=== PATIENT | male | born 1965 | race Caucasian/White ===

== ENCOUNTER → 2020-01-12 | Outpatient (CLI) | payer OTHER ==
--- NOTE | 2020-01-12 09:50 | CT ---
EXAMINATION TYPE: CT lower leg LT wo con DATE OF EXAM: 01/12/2020 COMPARISON: None number no plain film supplied for correlation HISTORY: Leg pinned by marquez, pain left knee down CT DLP: 1089.3 mGycm Automated exposure control for dose reduction was used. Helical imaging through the left knee, mason l and sagittal reconstructions FINDINGS: There is no fracture or dislocation. Alignment, bone mineralization are maintained. No periostitis to suggest fracture healing. No evident soft tissue mass. Achilles tendon thought to be intact. Minimal knee joint fluid present in the suprapatellar location. Some mild soft tissue swelling present along the anterior leg. IMPRESSION: SOFT TISSUE SWELLING. NO FRACTURE OR DISLOCATION.
== END | disposition home or self-care (01) ==
LOC: RADCTMAIN 06:53
PROVIDERS: ATTEND Family Medicine
DX: M79.89 Other specified soft tissue disorders (principal)

== ENCOUNTER 2020-03-03 15:40 | Emergency (ER) | payer BC, OTHER ==
[2020-03-03 16:01] VITALS: PULSE 75; TEMP 97.9
--- NOTE | 2020-03-03 17:11 | ED ---
Recheck HPI - General Chief Complaint: Recheck/Abnormal Lab/Rx Stated Complaint: elevated BP Time Seen by Provider: 03/03/20 16:58 Source: patient, family, RN notes reviewed, old records reviewed Mode of arrival: ambulatory Limitations: no limitations - History of Present Illness Initial Comments: This is a 54-year-old male history of hypertensionalso history of left lower extremity fasciotomy last summer after a crush injury who presents today for wo und care with complaints of elevated blood pressure. He took his medication as he usually doesn't 5:00 this morning at 11 AM a wound care was noted that his systolic blood pressure was in the 200s. Currently he is 160. He still remains elevated though he has no symptoms such as dizziness blurry vision fevers chills nausea vomiting sweats chest pain exertional dyspnea or other problems. The wou nd is healing he states he does have some persistent anterior john pain in the left side S of unknown etiology. - Related Data Home Medications Medication Instructions Recorded Confirmed Acetaminophen Tab [Tylenol Tab] 500 mg PO Q6H PRN 03/03/20 03/03/20 Furosemide [Lasix] 10 mg PO DAILY 03/03/20 03/03/20 Metoprolol Succinate (ER) [Toprol 100 mg PO BID 03/03/20 03/03/20 Xl] Sertraline [Zoloft] 50 mg PO DAILY 03/03/20 03/03/20 traMADol HCL 50 mg PO BID PRN 03/03/20 03/03/20 Allergies Allergy/AdvReac Type Severity Reaction Status Date / Time codeine Allergy Itching Verified 03/03/20 18:22 Review of Systems ROS Statement: Those systems with pertinent positive or pertinent negative responses have been documented in the HPI. ROS Other: All systems not noted in ROS Statement are negative. Past Medical History Past Medical History: Atrial Flutter, Hypertension Additional Past Medical History / Comment(s): 06/24/14 Pt present to [facility] ER with c/o midsternal ches discomfort that radiated to his back and dizziness and headache that started yesterday. Pt also c/o R shoulder discomfort for the past 2 weeks - the R shoulder pain is affected by positioning. Other HX: regular ir regular heart beat. History of Any Multi-Drug Resistant Organisms: None Reported Past Surgical History: No Surgical Hx Reported Additional Past Surgical History / Comment(s): vasectomy x 2, facsiotomy Past Anesthesia/Blood Transfusion Reactions: No Reported Reaction Past Psychological History: No Psychological Hx Reported Smoking Status: Current every day smoker Past Alcohol Use History: None Reported Past Drug Use History: None Reported - Past Family History Father Family Medical History: Unable to Obtain Additional Family Medical History / Comment(s): Father committed suicide. Mother Family Medical History: No Reported History Additional Family Medical History / Comment(s): Mother is 69 yrs old. She is healthy but is currently being tx for a sore on her leg with a wound vac. General Exam - General Exam Comments Initial Comments: this is a well-developed well-nourished awake alert oriented 3 male Limitations: no limitations General appearance: alert, in no apparent distress Head exam: Present: atraumatic, normocephalic, normal inspection Eye exam: Present: normal appearance, PERRL, EOMI. Absent: scleral icterus, conjunctival injection, periorbital swelling ENT exam: Present: mucous membranes dry Neck exam: Present: normal inspection. Absent: tenderness, meningismus, lymphadenopathy Respiratory exam: Present: normal lung sounds bilaterally. Absent: respiratory distress, wheezes, rales, rhonchi, stridor Cardiovascular Exam: Present: regular rate, normal rhythm, normal heart sounds. Absent: systolic murmur, diastolic murmur, rubs, gallop, clicks GI/Abdominal exam: Present: soft, normal bowel sounds. Absent: distended, tenderness, guarding, rebound, rigid Extremities exam: Present: normal inspection, full ROM, normal capillary refill. Absent: tenderness, pedal edema, joint swelling, calf tenderness Back exam: Present: normal inspection Neurological exam: Present: alert, oriented X3, CN II-XII intact Psychiatric exam: Present: normal affect, normal mood Skin exam: Present: warm, dry, intact, normal color. Absent: rash Course Vital Signs 03/03/20 03/03/20 03/03/20 15:57 16:36 17:15 Temperature 97.9 F Pulse Rate 75 70 Respiratory 18 18 Rate Blood Pressure 184/112 184/113 170/113 O2 Sat by Pulse 98 99 Oximetry 03/03/20 03/03/20 03/03/20 17:45 17:54 18:42 Temperature Pulse Rate 75 Respiratory 19 Rate Blood Pressure 155/117 165/103 159/98 O2 Sat by Pulse 98 Oximetry Medical Decision Making - Medical Decision Making patient is improving this at rest he will get IV fluids he will be following up with his doctor. He did clinically appear to be dehydrated. He does have a blood pressure monitor at home he will do this once per day he does have a follow-up appointment with his doctor in 2 days - Lab Data Result diagrams: 03/03/20 17:12 03/03/20 17:12 Lab Results 03/03/20 03/03/20 03/03/20 Range/Units 17:12 17:12 17:12 WBC 11.4 H (3.8-10.6) k/uL RBC 5.19 (4.30-5.90) m/uL Hgb 15.4 (13.0-17.5) gm/dL Hct 47.5 (39.0-53.0) % MCV 91.6 (80.0-100.0) fL MCH 29.7 (25.0-35.0) pg MCHC 32.4 (31.0-37.0) g/dL RDW 13.4 (11.5-15.5) % Plt Count 219 (150-450) k/uL MPV 7.5 Neutrophils % 62 % Lymphocytes % 24 % Monocytes % 7 % Eosinophils % 2 % Basophils % 1 % Neutrophils # 7.1 (1.3-7.7) k/uL Lymphocytes # 2.8 (1.0-4.8) k/uL Monocytes # 0.8 (0-1.0) k/uL Eosinophils # 0.3 (0-0.7) k/uL Basophils # 0.1 (0-0.2) k/uL Sodium 137 (137-145) mmol/L Potassium 4.2 (3.5-5.1) mmol/L Chloride 106 (98-107) mmol/L Carbon Dioxide 26 (22-30) mmol/L Anion Gap 5 mmol/L BUN 19 (9-20) mg/dL Creatinine 1.03 (0.66-1.25) mg/dL Est GFR (CKD-EPI)AfAm >90 (>60 ml/min/1.73 sqM) Est GFR (CKD-EPI)NonAf 84 (>60 ml/min/1.73 sqM) Glucose 99 (74-99) mg/dL Calcium 8.9 (8.4-10.2) mg/dL Magnesium 2.1 (1.6-2.3) mg/dL Total Bilirubin 0.5 (0.2-1.3) mg/dL AST 39 (17-59) U/L ALT 45 (4-49) U/L Alkaline Phosphatase 76 (38-126) U/L Creatine Kinase 65 (55-170) U/L Troponin I <0.012 (0.000-0.034) ng/mL Total Protein 7.6 (6.3-8.2) g/dL Albumin 4.2 (3.5-5.0) g/dL Lipase 289 (23-300) U/L - EKG Data -: EKG Interpreted by Me EKG shows normal: sinus rhythm EKG Comments: sinus rhythm a 63. Interval 190 QRS duration 104 QT since QTC 492/503 right word axis and complete right bundle-branch block, QT nonspecific T-wave configuration artifact present - Radiology Data Radiology results: report reviewed (I did review the imaging and report no acute findings.), image reviewed Disposition Clinical Impression: Hypertension, Dehydration Disposition: HOME SELF-CARE Condition: Good Instructions (If sedation given, give patient instructions): Hypertension (ED), Dehydration (ED) Is patient prescribed a controlled substance at d/c from ED?: No Referrals: Holger Myers MD [Primary Care Provider] - 1-2 days
[2020-03-03 17:26] LABS: Basophils # (A) 0.1 k/uL (0-0.2); Basophils % (A) 1 %; Eosinophils # (A) 0.3 k/uL (0-0.7); Eosinophils % (A) 2 %; HCT 47.5 % (39.0-53.0); HGB 15.4 gm/dL (13.0-17.5); Lymphocytes # (A) 2.8 k/uL (1.0-4.8); Lymphocytes % (A) 24 %; MCH 29.7 pg (25.0-35.0); MCHC 32.4 g/dL (31.0-37.0); MCV 91.6 fL (80.0-100.0); Mean Platelet Volume 7.5; Monocytes # (A) 0.8 k/uL (0-1.0); Monocytes % (A) 7 %; Neutrophils # (A) 7.1 k/uL (1.3-7.7); Neutrophils % (A) 62 %; Platelet Count 219 k/uL (150-450); RBC 5.19 m/uL (4.30-5.90); RDW 13.4 % (11.5-15.5); WBC 11.4 k/uL (3.8-10.6)
[2020-03-03 17:36] LABS: ALT 45 U/L (4-49); AST 39 U/L (17-59); African American GFR (CKD) >90 (>60 ml/min/1.73 sqM); Albumin 4.2 g/dL (3.5-5.0); Alkaline Phosphatase 76 U/L (38-126); Anion Gap 5 mmol/L; Blood Urea Nitrogen 19 mg/dL (9-20); Calcium 8.9 mg/dL (8.4-10.2); Carbon Dioxide 26 mmol/L (22-30); Chloride 106 mmol/L (98-107); Creatine Kinase 65 U/L (55-170); Glucose 99 mg/dL (74-99); Lipase 289 U/L (23-300); Magnesium 2.1 mg/dL (1.6-2.3); Non-African American GFR(CKD) 84 (>60 ml/min/1.73 sqM); Potassium 4.2 mmol/L (3.5-5.1); Sodium 137 mmol/L (137-145); Total Bilirubin 0.5 mg/dL (0.2-1.3); Total Protein 7.6 g/dL (6.3-8.2)
[2020-03-03 17:56] VITALS: RESP 19
[2020-03-03] MEDS ORDERED: SODIUM CHLORIDE 0.9% 500 ML 500 ML IV STA (18:32)
--- NOTE | 2020-03-03 18:37 | XR ---
EXAMINATION TYPE: XR chest 2V DATE OF EXAM: 03/03/2020 COMPARISON: 06/24/2014 HISTORY: Chest pain TECHNIQUE: FINDINGS: Heart and mediastinum are normal. Lungs are clear. Diaphragm is normal. Bony thorax appears normal. There are chest leads. IMPRESSION: Normal chest. No change.
[2020-03-03 18:43] VITALS: BP 159/98
== END 2020-03-03 19:13 | disposition home or self-care (01) ==
LOC: EC 15:40
DX: I10 Essential (primary) hypertension (principal); E86.0 Dehydration; F17.200 Nicotine dependence, unspecified, uncomplicated; Z79.899 Other long term (current) drug therapy; Z88.5 Allergy status to narcotic agent
CPT/HCPCS: 36415; 71046; 80053; 82550; 83690; 83735; 84484; 85025; 93005; 99284

== ENCOUNTER → 2020-04-15 | Outpatient (CLI) | payer OTHER ==
--- NOTE | 2020-04-19 07:23 | US ---
EXAMINATION TYPE: US venous doppler duplex LE LT DATE OF EXAM: 04/15/2020 8:44 AM COMPARISON: NONE CLINICAL HISTORY: R22.42 Lower left swelling. SIDE PERFORMED: Left TECHNIQUE: The lower extremity deep venous system is examined utilizing real time linear array sonog laith with graded compression, doppler sonography and color-flow sonography. VESSELS IMAGED: Common Femoral Vein Deep Femoral Vein Greater Saphenous Vein * Femoral Vein Popliteal Vein Small Saphenous Vein * Proximal Calf Veins (* superficial vessels) Left Leg: Negative for DVT Grayscale, color doppler, spectral doppler imaging performed of the deep veins of the left lower extr emity. There is normal flow, compressibility, vascular waveforms. IMPRESSION: No ultrasound evidence for acute DVT in the left lower extremity.
== END | disposition home or self-care (01) ==
LOC: RADUSWWP 06:52
PROVIDERS: ATTEND Family Medicine
DX: R22.42 Localized swelling, mass and lump, left lower limb (principal)

== ENCOUNTER → 2020-04-30 | Outpatient (CLI) | payer OTHER ==
--- NOTE | 2020-05-01 03:14 | MR ---
EXAMINATION TYPE: MR tib fib LT wo con DATE OF EXAM: 04/30/2020 COMPARISON: None HISTORY: Pain and swelling left mid leg down to ankle for 6 months. Left leg crushing injury. Multiplanar multiecho imaging of the left tibia and fibula was performed without contrast. The tibia and fibula appear intact. I see no bony destructive process. There is mild subcutaneous humphrey ma of the posterior left mid calf. There is no discrete mass involving the muscles of the lower leg. There is no pathologic fluid collection in the muscle. IMPRESSION: Minimal posterior subcutaneous edema on the left side compared to the right. No discrete mass.
== END | disposition home or self-care (01) ==
LOC: RADMRIMAIN 20:39
PROVIDERS: ATTEND Family Medicine
DX: R60.0 Localized edema (principal)

== ENCOUNTER → 2020-08-18 | Outpatient (CLI) | payer OTHER ==
--- NOTE | 2020-08-19 05:35 | MR ---
EXAMINATION TYPE: MR tib fib LT wo/w con DATE OF EXAM: 08/18/2020 COMPARISON: HISTORY: Hx of left leg injury, had 2 fasciectomy procedures, mid leg lateral and medial aspect. CONTRAST: Standard multiplanar, multisequence MRI departmental protocol utilizing 11 mL intravenous Gadavist ga dolinium contrast. Images were obtained from the distal femur to the distal tibia without and with IV contrast. The visualized tibia and fibula appear intact. I see no bony destructive process. Knee joint appears anatomic. Left knee joint spaces are fairly normal. There is no evidence of a soft tissue mass in the lower leg. Muscle bundles have normal signal patter n. There is no edema. There is no pathologic fluid collection. There is no evidence of cutaneous mass . Muscle bundles of the calf are fairly symmetric. I see no atrophy. There is loss of subcutaneous fa t and skin thickness seen at the medial lower aspect of the left tibia. This is consistent with some postsurgical changes. This measures up to 2.5 cm in width. There is no pathologic enhancement. Impression No bony abnormality. No muscle abnormality. There is loss of subcutaneous fat and skin thickness on t he medial lower leg consistent with surgery.
== END | disposition home or self-care (01) ==
LOC: RADMRIMAIN 20:45
PROVIDERS: ATTEND Family Medicine
DX: S80.922A Unspecified superficial injury of left lower leg, initial encounter (principal)
CPT/HCPCS: 73720; A9585

== ENCOUNTER → 2020-10-21 | Outpatient (CLI) | payer OTHER ==
--- NOTE | 2020-10-21 11:50 | CT ---
EXAMINATION TYPE: CT angio abd aorta w/Runoff DATE OF EXAM: 10/21/2020 COMPARISON: Correlation CT 01/12/2020 HISTORY: 54-year-old male I73.9, Crushing injury to lower left leg, peripheral artery disease TECHNIQUE: Contiguous axial scanning of the abdomen and pelvis with bilateral lower extreme runoff pe rformed without and with IV Contrast, patient injected with 125 mL of Isovue 370. Coronal/sagittal re constructions performed. 3-D reconstructions generated on a dedicated independent workstation. CT DLP: 1825.3 mGycm Automated exposure control for dose reduction was used. FINDINGS: Heart normal size without pericardial effusion. Lung bases clear without pleural effusion. Tiny hiatal hernia. Liver mildly enlarged at 19.5 cm. No focal lesion seen on arterial phase imaging. Gallbladder, right adrenal gland, and pancreas appear within normal limits. Tiny punctate calcificati on medial spleen suggesting a small calcified granuloma. Mild low density thickening left adrenal gland without discrete nodularity. There is a horseshoe kidney. There appears to be an extra renal pelvis on the left. No calyceal dilat ation to suggest hydronephrosis. No dilated small bowel, free fluid, or free air. No mesenteric or retroperitoneal lymphadenopathy. Some mottled debris within the terminal ileum, likely fiber food bolus. Mild to moderate oral stool b urden. No pericolonic inflammatory change. Mild circumferential bladder wall thickening. Prostatic calcifications. No abnormal fluid collection in the pelvis or pelvic lymphadenopathy. VASCULATURE: Celiac axis, SMA, bilateral gandhi renal arteries, and KELVIN are patent. No significant atherosclero tic changes seen. Right: The iliac, common femoral artery, deep femoral artery, SFA, popliteal artery, and trifurcation is pat ent. The anterior tibial artery and peroneal artery becomes diminutive just above the ankle. The peroneal artery is no longer seen. The anterior tibial artery is faintly seen into the hindfoot. There is sati sfactory runoff via the posterior tibial artery. Left: The iliac, BUS GIRL, PFA, SFA, popliteal artery, and trifurcation. The peroneal artery becomes nonvisualized just above the ankle. The anterior tibial artery becomes diminutive at the distal third leg level with faint runoff seen in to the hindfoot. Satisfactory runoff via the posterior tibial artery. On the 3-D reconstruction, there is a short segment cutoff of the proximal anterior tibial artery whi ch is artifactual as it courses along the fibular neck. BONES: Scattered mild degenerative disc disease lumbar spine. Some subchondral cystic change at the right ti biotalar joint at the ankle. IMPRESSION: 1. THERE IS BILATERAL LOWER EXTREMITY RUNOFF VIA THE POSTERIOR TIBIAL ARTERIES. FAINT ANTERIOR TIBIAL ARTERY FLOW IS SEEN INTO THE BILATERAL HINDFOOT REGIONS ON BOTH SIDES. NO SIGNIFICANT ATHEROSCLEROTI C CHANGE IS IDENTIFIED. 2. NOTE THAT A SHORT SEGMENT DEFECT OF THE PROXIMAL LEFT ANTERIOR TIBIAL ARTERY IS ARTIFACTUAL ON THE 3-D RECONSTRUCTIONS DUE TO CLOSE PROXIMITY TO THE FIBULAR NECK AND RESULTANT PARTIAL VOLUME AVERAGIN G ARTIFACT. THERE IS NO STENOSIS OR OCCLUSION ON THE SOURCE IMAGES. 3. MILD HEPATOMEGALY (19.5 CM), TINY HIATAL HERNIA, INCIDENTAL HORSESHOE KIDNEY
== END | disposition home or self-care (01) ==
LOC: RADCTMAIN 07:43
PROVIDERS: ATTEND Family Medicine
DX: R16.0 Hepatomegaly, not elsewhere classified (principal); Q63.1 Lobulated, fused and horseshoe kidney
CPT/HCPCS: 75635; Q9967

== ENCOUNTER 2021-01-15 19:11 | Observation (INO) | payer OTHER ==
[2021-01-15] MEDS ORDERED: KETOROLAC 15 MG/ML 1 ML VIAL IVP STA (19:22)
[2021-01-15 19:38] LABS: Basophils # (A) 0.1 k/uL (0-0.2); Basophils % (A) 1 %; Eosinophils # (A) 0.1 k/uL (0-0.7); Eosinophils % (A) 1 %; HCT 49.7 % (39.0-53.0); HGB 16.1 gm/dL (13.0-17.5); Lymphocytes # (A) 2.9 k/uL (1.0-4.8); Lymphocytes % (A) 27 %; MCH 30.7 pg (25.0-35.0); MCHC 32.3 g/dL (31.0-37.0); MCV 94.9 fL (80.0-100.0); Mean Platelet Volume 7.6; Monocytes # (A) 0.7 k/uL (0-1.0); Monocytes % (A) 6 %; Neutrophils % (A) 64 %; Platelet Count 234 k/uL (150-450); RBC 5.24 m/uL (4.30-5.90); RDW 12.7 % (11.5-15.5); WBC 11.1 k/uL (3.8-10.6)
--- NOTE | 2021-01-15 19:38 | ED ---
Chest Pain HPI - General Chief Complaint: Chest Pain Stated Complaint: chest pain Time Seen by Provider: 01/15/21 19:21 Source: patient, EMS, RN notes reviewed Mode of arrival: EMS Limitations: no limitations - History of Present Illness Initial Comments: 35-year-old male who presents with complaints of right sided chest pain this started about 45 minutes ago. He was at home after they had home. He states he gets better with pressing on his chest wall no fevers chills nausea vomiting sweats he did call EMS and nitroglycerin as well as aspirin changes states that sharp in nature 01/30 severity he has a fevers chills nausea vomiting sweats cough phlegm production or other symptoms no trauma. MD Complaint: chest pain - Related Data Home Medications Medication Instructions Recorded Confirmed Acetaminophen Tab [Tylenol Tab] 500 mg PO Q6H PRN 03/03/20 03/03/20 Furosemide [Lasix] 10 mg PO DAILY 03/03/20 03/03/20 Metoprolol Succinate (ER) [Toprol 100 mg PO BID 03/03/20 03/03/20 Xl] Sertraline [Zoloft] 50 mg PO DAILY 03/03/20 03/03/20 traMADol HCL 50 mg PO BID PRN 03/03/20 03/03/20 Allergies Allergy/AdvReac Type Severity Reaction Status Date / Time codeine Allergy Itching Verified 03/03/20 18:22 Review of Systems ROS Statement: Those systems with pertinent positive or pertinent negative responses have been documented in the HPI. ROS Other: All systems not noted in ROS Statement are negative. EKG Findings - EKG Results: EKG: interpreted by ERMD, sinus rhythm (Sinus tachycardia rate of 108 TX in terval 138 QRS duration 90 QT since QTC 390/522 right word axis nonspecific ST-T wave configuration prolonged QT noted this is compared with previous EKGs dated both and 06/24/14 and similar configuration.) Past Medical History Past Medical History: Atrial Flutter, Hypertension Additional Past Medical History / Comment(s): 06/24/14 Pt present to [facility] ER with c/o midsternal ches discomfort that radiated to his back and dizziness and headache that started yesterday. Pt also c/o R shoulder discomfort for the past 2 weeks - the R shoulder pain is affected by positioning. Other HX: regular irregular heart beat. History of Any Multi-Drug Resistant Organisms: None Reported Past Surgical History: No Surgical Hx Reported Additional Past Surgical History / Comment(s): vasectomy x 2, facsiotomy Past Anesthesia/Blood Transfusion Reactions: No Reported Reaction Past Psychological History: No Psychological Hx Reported Smoking Status: Current every day smoker Past Alcohol Use History: None Reported Past Drug Use History: None Reported - Past Family History Father Family Medical History: Unable to Obtain Additional Family Medical History / Comment(s): Father committed suicide. Mother Family Medical History: No Reported History Additional Family Medical History / Comment(s): Mother is 69 yrs old. She is healthy but is currently being tx for a sore on her leg with a wound vac. General Exam - General Exam Comments Initial Comments: This is a well-developed well-nourished awake alert oriented times 3 male Limitations: no limitations General appearance: alert, anxious Head exam: Present: atraumatic, normocephalic, normal inspection Eye exam: Present: normal appearance, PERRL, EOMI. Absent: scleral icterus, conjunctival injection, periorbital swelling ENT exam: Present: normal exam, mucous membranes moist Neck exam: Present: normal inspection, full ROM, other (No stridor JVD or bruits). Absent: tenderness, meningismus, lymphadenopathy Respiratory exam: Present: normal lung sounds bilaterally, chest wall tenderness (No overt tenderness palpation is complaining of some pain relief after palpation of the right side of the chest). Absent: respiratory distress, wheezes, rales, rhonchi, stridor Cardiovascular Exam: Present: regular rate, normal rhythm, normal heart sounds. Absent: systolic murmur, diastolic murmur, rubs, gallop, clicks GI/Abdominal exam: Present: soft, normal bowel sounds. Absent: distended, tenderness, guarding, rebound, rigid Extremities exam: Present: normal inspection, full ROM, normal capillary refill. Absent: tenderness, pedal edema, joint swelling, calf tenderness Back exam: Present: normal inspection Neurological exam: Present: alert, oriented X3, CN II-XII intact Psychiatric exam: Present: normal affect, normal mood Skin exam: Present: warm, dry, intact, normal color. Absent: rash Course Vital Signs 01/15/21 01/15/21 19:13 20:18 Temperature 98.3 F Pulse Rate 105 H 87 Respiratory 18 16 Rate Blood Pressure 139/96 130/92 O2 Sat by Pulse 97 98 Oximetry - Reevaluation(s) Reevaluation #1: 01/15/21 21:11 Reevaluation patient reveals he is improved after medications were rendered. Reevaluation #2: 01/15/21 21:14 Repeat EKG showed a sinus rhythm 81. Avoid 54 QRS 88 QT since QTC 400/464 right word axis nonspecific ST T-wave configuration Chest Pain MDM - MDM Imaging reviewed no acute findings. Patient's workup thus far is negative for acute findings EKG does show evidence of previous configuration. Patient be admitted for evaluation and cardiology consultation. Critical Care Time Critical Care Time: Yes Total Critical Care Time: 31 Critical Care Time: Critical care time includes initial presentation with history physical labs x- rays multiple reevaluation the patient review of old charting was available discussed with the patient family regarding the findings discussed with the main service admission orders and documentation of the above Disposition Clinical Impression: Atypical chest pain, Unstable angina pectoris Disposition: ADMITTED IP TO THIS HOSP Condition: Fair Referrals: Holger Myers MD [Primary Care Provider] - 1-2 days
[2021-01-15 19:57] LABS: ALT 34 U/L (4-49); AST 28 U/L (17-59); African American GFR (CKD) >90 (>60 ml/min/1.73 sqM); Albumin 4.5 g/dL (3.5-5.0); Alkaline Phosphatase 77 U/L (38-126); Blood Urea Nitrogen 18 mg/dL (9-20); Calcium 9.5 mg/dL (8.4-10.2); Carbon Dioxide 24 mmol/L (22-30); Creatine Kinase 93 U/L (55-170); Glucose 113 mg/dL (74-99); Lipase 181 U/L (23-300); Non-African American GFR(CKD) 87 (>60 ml/min/1.73 sqM); Total Protein 7.7 g/dL (6.3-8.2)
[2021-01-15 20:04] LABS: Anion Gap 9 mmol/L; Chloride 102 mmol/L (98-107); Potassium 4.4 mmol/L (3.5-5.1); Sodium 135 mmol/L (137-145)
[2021-01-15 20:06] LABS: INR 0.9 (<1.2); Partial Thromboplastin Time 24.7 sec (22.0-30.0); Prothrombin Time 9.8 sec (9.0-12.0)
[2021-01-15] MEDS ORDERED: HYDROmorphone 1 MG/ML 1 ML SYRINGE IVP STA (20:13)
--- NOTE | 2021-01-15 20:19 | XR ---
EXAMINATION TYPE: XR chest 2V DATE OF EXAM: 01/15/2021 COMPARISON: 03/03/2020 HISTORY: Chest pain TECHNIQUE: FINDINGS: Heart and mediastinum are normal. Lungs are clear. Diaphragm is normal. Bony thorax is inta ct. IMPRESSION: Normal chest. No change.
[2021-01-15] MEDS ORDERED: HEPARIN SODIUM 1,000 UN/ML (10ML VL) IV ONE (21:15)
[2021-01-15] MEDS ORDERED: traMADol 50 MG TAB PO PRN (21:18)
[2021-01-15] MEDS ORDERED: ACETAMINOPHEN TAB 500 MG TAB PO PRN (21:18)
[2021-01-15] MEDS ORDERED: NITROGLYCERIN OINT 1 INCH/GM PACKET TOPICAL STA (21:18)
[2021-01-15] MEDS: HEPARIN SOD,PORK IN 0.45% NACL 25,000 UNIT in 0.45% NACL 1 250ML.BAG IV SCH (21:45)
[2021-01-15] MEDS: SODIUM CHLORIDE 0.9% 1,000 ML IV SCH (23:08)
[2021-01-16] MEDS: MELATONIN 3 MG TABLET PO SCH ×2 (00:28→22:12)
[2021-01-16] MEDS: NITROGLYCERIN OINT 1 INCH/GM PACKET TOPICAL SCH ×4 (00:28→17:20)
[2021-01-16] MEDS ORDERED: HEPARIN SODIUM 1,000 UN/ML (10ML VL) IV PRN (04:42)
[2021-01-16 05:19] LABS: Prothrombin Time 10.4 sec (9.0-12.0)
[2021-01-16] MEDS ORDERED: ASPIRIN 325 MG TAB PO SCH (09:00)
[2021-01-16] MEDS ORDERED: METOPROLOL SUCCINATE (ER) 100 MG TAB.ER.24H PO SCH (09:00)
[2021-01-16] MEDS ORDERED: SERTRALINE 50 MG TAB PO SCH (09:00)
[2021-01-16 09:14] LABS: Chol/HDL Ratio 4.06; LDL Cholesterol,Calculated 68.2 mg/dL (0.0-131.0); VLDL Calculation 35.8 mg/dL (5.00-40.00)
--- NOTE | 2021-01-16 09:32 | P.CRDCN ---
History of Present Illness Consult date: 01/16/21 History of present illness: This is a 55-year-old gentleman with history of hypertension is under stress because of family problems, came to the emergency room with complaints of right- sided chest pain which is under the axilla radiating to the front. There is mild tenderness. However, the pain is not to respirophasic doesn't change with movement of the chest. Patient was given nitroglycerin without much relief. He has no nausea, vomiting, sweating or shortness of breath. Patient was given Dilaudid, which lasted him and that helped relieve the pain. When the Dilaudid wore off, patient had recurrence of pain. Right now the pain is mild. His EKG showed sinus rhythm with mild T-wave changes in the anterior lateral leads. Patient had similar changes seen in 1999 with more T-wave inversions in leads. Patient is advised to stay and have a stress test. He prefers to go home and have stress test as an outpatient. He could be scheduled for echo and stress echocardiogram as an outpatient. Follow-up after the testing. It appears that patient have also has history of atrial flutter Review of Systems As per the chart Past Medical History Past Medical History: Atrial Flutter, Hypertension Additional Past Medical History / Comment(s): 06/24/14 Pt present to [facility] ER with c/o midsternal ches discomfort that radiated to his back and dizziness and headache that started yesterday. Pt also c/o R shoulder discomfort for the past 2 weeks - the R shoulder pain is affected by positioning. Other HX: regular irregular heart beat. History of Any Multi-Drug Resistant Organisms: None Reported Past Surgical History: No Surgical Hx Reported Additional Past Surgical History / Comment(s): vasectomy x 2, facsiotomy Past Anesthesia/Blood Transfusion Reactions: No Reported Reaction Past Psychological History: No Psychological Hx Reported Additional Psychological History / Comment(s): Pt lives at home with significant other and there are several children and grand children in and out of the home. Pt is independent. Smoking Status: Current every day smoker Past Alcohol Use History: None Reported Additional Past Alcohol Use History / Comment(s): Pt states he started smoking at 19 yrs of age and stopped once for 3 yrs then went back to smoking. He currently smokes about a pack a day. Past Drug Use History: None Reported - Past Family History Father Family Medical History: Unable to Obtain Additional Family Medical History / Comment(s): Father committed suicide. Mother Family Medical History: No Reported History Additional Family Medical History / Comment(s): Mother is 69 yrs old. She is healthy but is currently being tx for a sore on her leg with a wound vac. Medications and Allergies Home Medications Medication Instructions Recorded Confirmed Type Betamethasone Dipropionate 1 applic TOPICAL BID PRN 01/15/21 01/15/21 History [Diprolene AF 0.05% Cream] amLODIPine [Norvasc] 10 mg PO DAILY 01/15/21 01/15/21 History Allergies Allergy/AdvReac Type Severity Reaction Status Date / Time codeine Allergy Itching Verified 01/15/21 21:56 Physical Exam Vitals: Vital Signs Temp Pulse Pulse Resp BP BP Pulse Ox 01/16/21 07:00 97.9 F 76 18 137/71 96 01/16/21 02:05 97 17 01/16/21 00:30 97.0 F L 97 17 132/74 96 01/15/21 22:41 98.1 F 97 16 114/73 95 01/15/21 21:50 77 17 160/98 01/15/21 20:18 87 16 130/92 98 01/15/21 19:13 98.3 F 105 H 18 139/96 97 Intake and Output 01/15/21 01/16/21 01/16/21 22:59 06:59 14:59 Intake Total 70.5 Balance 70.5 Intake: Intake, IV Titration 70.5 Amount Heparin Sod,Pork in 0.45% 70.5 NaCl 25,000 unit In 0.45 % NaCl 1 250ml.bag @ 9. 381 UNITS/KG/HR 10 mls/hr IV .Q24H [facility] Rx#: [id number] Other: Voiding Method Toilet # Voids 2 0 Weight 106.594 kg GENERAL EXAM: Patient is alert and oriented and doesn't appear to be in any acute distress HEENT: Normocephalic. Normal reaction of pupils, equal size, normal range of extraocular motion. No erythema or exudates in the throat. NECK: No masses, no nuchal rigidity. CHEST: No chest wall deformity. No tenderness LUNGS: Equal air entry with no crackles or wheeze. HEART: S1 and S2 normal with no audible mumurs or gallops. Regular rhythm, femorals equal on both sides.. ABDOMEN: No hepatosplenomegaly, normal bowel sounds, no guarding or rigidity. SKIN: No rashes CENTRAL NERVOUS SYSTEM: No focal deficits. EXTREMITIES: No cyanosis, clubbing or edema. Results 01/15/21 19:24 01/15/21 19:24 Cardiac Enzymes 01/15/21 01/15/21 01/15/21 Range/Units 19:24 19:24 22:38 AST 28 (17-59) U/L Troponin I <0.012 <0.012 (0.000-0.034) ng/mL 01/16/21 Range/Units 01:00 AST (17-59) U/L Troponin I <0.012 (0.000-0.034) ng/mL Coagulation 01/15/21 01/16/21 01/16/21 Range/Units 19:24 04:02 04:02 PT 9.8 10.4 (9.0-12.0) sec APTT 24.7 27.5 (22.0-30.0) sec Lipids 01/16/21 Range/Units 04:02 Triglycerides 179.0 H (0.0-149.0) mg/dL Cholesterol 138 (0-200) mg/dL HDL Cholesterol 34.0 L (40.0-60.0) mg/dL Cholesterol/HDL Ratio 4.06 CBC 01/15/21 Range/Units 19:24 WBC 11.1 H (3.8-10.6) k/uL RBC 5.24 (4.30-5.90) m/uL Hgb 16.1 (13.0-17.5) gm/dL Hct 49.7 (39.0-53.0) % Plt Count 234 (150-450) k/uL Comprehensive Metabolic Panel 01/15/21 Range/Units 19:24 Sodium 135 L (137-145) mmol/L Potassium 4.4 (3.5-5.1) mmol/L Chloride 102 (98-107) mmol/L Carbon Dioxide 24 (22-30) mmol/L BUN 18 (9-20) mg/dL Creatinine 0.99 (0.66-1.25) mg/dL Glucose 113 H (74-99) mg/dL Calcium 9.5 (8.4-10.2) mg/dL AST 28 (17-59) U/L ALT 34 (4-49) U/L Alkaline Phosphatase 77 (38-126) U/L Total Protein 7.7 (6.3-8.2) g/dL Albumin 4.5 (3.5-5.0) g/dL Current Medications Generic Name Dose Route Start Last Admin Trade Name Freq PRN Reason Stop Dose Admin Acetaminophen 500 mg 01/15/21 21:18 Acetaminophen Tab 500 Mg Tab PO Q6H PRN Pain Aspirin 325 mg 01/16/21 09:00 Aspirin 325 Mg Tab PO DAILY [facility] Furosemide 10 mg 01/16/21 09:00 Furosemide 20 Mg Tab PO DAILY [facility] Heparin Sodium (Porcine) 0 unit 01/16/21 04:42 01/16/21 04:50 Heparin Sodium 1,000 Un/Ml (10ml Vl) IV 4,000 unit PER PROTOCOL PRN Administration Low PTT Protocol Sodium Chloride 1,000 mls @ 20 mls/hr 01/15/21 21:15 01/15/21 23:08 Saline 0.9% IV Not Given .Q24H [facility] Heparin Sodium/Sodium Chloride 250 mls @ 10 mls/hr 01/15/21 21:15 01/16/21 04:48 25,000 unit/ Sodium Chloride IV 12.381 units/kg/hr .Q24H [facility] 13.197 mls/hr Titration Protocol 9.381 UNITS/KG/HR Melatonin 6 mg 01/16/21 00:15 01/16/21 00:28 Melatonin 3 Mg Tablet PO 6 mg HS [facility] Administration Nitroglycerin 1 inch 01/16/21 00:00 01/16/21 06:09 Nitroglycerin Oint 1 Inch/Gm Packet TOPICAL 1 inch Q6HR [facility] Administration Tramadol HCl 50 mg 01/15/21 21:18 Tramadol 50 Mg Tab PO BID PRN Pain Intake and Output 01/15/21 01/16/21 01/16/21 22:59 06:59 14:59 Intake Total 70.5 Balance 70.5 Intake: Intake, IV Titration 70.5 Amount Heparin Sod,Pork in 0.45% 70.5 NaCl 25,000 unit In 0.45 % NaCl 1 250ml.bag @ 9. 381 UNITS/KG/HR 10 mls/hr IV .Q24H [facility] Rx#: [id number] Other: Voiding Method Toilet # Voids 2 0 Weight 106.594 kg 01/15/21 19:24 01/15/21 19:24 EKG Interpretations (text) Sinus rhythm with nonspecific T-wave changes in the lateral leads Assessment and Plan (1) Atypical chest pain Current Visit: Yes Status: Acute Code(s): R07.89 - OTHER CHEST PAIN SNOMED Code(s): 987938676 (2) Atrial flutter Current Visit: No Status: Chronic Code(s): I48.92 - UNSPECIFIED ATRIAL FLUTTER SNOMED Code(s): 0409675 (3) Hypertension Current Visit: No Status: Chronic Code(s): I10 - ESSENTIAL (PRIMARY) HYPERTENSION SNOMED Code(s): 07965549 Plan: At this point, patient chest pains do appear atypical. Cardiac enzymes are negative. Patient is advised to have stress echocardiogram tomorrow and also s urface echocardiogram. Patient prefers to go home and have the test as an outpatient. Follow-up after the testing
[2021-01-16] MEDS: FUROSEMIDE 20 MG TAB PO SCH (09:40)
--- NOTE | 2021-01-16 11:36 | P.HPIM ---
History of Present Illness H&P Date: 01/16/21 Chief Complaint: Left-sided chest pain Patient seen eval reexamined while covering for Dr. Holger Myers Patient is a pleasant 55-year-old male who came into the hospital for further evaluation of right chest pain occurred spontaneously in the afternoon pain was on the left side of the chest with radiation, patient also had a heated argument with his spouse prior to that was upset, off note that were delighted severity of pain, his past medical history his chronic atrial fibrillation proximal leg syndrome, hypertension hypertensive cardiovascular disease, patient is a long- term smoker and smokes about a pack per day, workup and evaluation significant for mild leukocytosis with WBC 7000 and otherwise chemistry was within normal limit except mild hyponatremia and hyperglycemia with sugar of 113 him a troponin 3 within normal limit, COVID-19 is negative, BNP is 237, fasting cholesterol slightly elevated, chest x-ray is unremarkable, d-dimer is normal Review of Systems All systems: negative Past Medical History Past Medical History: Atrial Flutter, Hypertension Additional Past Medical History / Comment(s): 06/24/14 Pt present to [facility] ER with c/o midsternal ches discomfort that radiated to his back and dizziness and headache that started yesterday. Pt also c/o R shoulder discomfort for the past 2 weeks - the R shoulder pain is affected by positioning. Other HX: regular irregular heart beat. History of Any Multi-Drug Resistant Organisms: None Reported Past Surgical History: No Surgical Hx Reported Additional Past Surgical History / Comment(s): vasectomy x 2, facsiotomy Past Anesthesia/Blood Transfusion Reactions: No Reported Reaction Past Psychological History: No Psychological Hx Reported Additional Psychological History / Comment(s): Pt lives at home with significant other and there are several children and grand children in and out of the home. Pt is independent. Smoking Status: Current every day smoker Past Alcohol Use History: None Reported Additional Past Alcohol Use History / Comment(s): Pt states he started smoking at 19 yrs of age and stopped once for 3 yrs then went back to smoking. He currently smokes about a pack a day. Past Drug Use History: None Reported - Past Family History Father Family Medical History: Unable to Obtain Additional Family Medical History / Comment(s): Father committed suicide. Mother Family Medical History: No Reported History Additional Family Medical History / Comment(s): Mother is 69 yrs old. She is healthy but is currently being tx for a sore on her leg with a wound vac. Medications and Allergies Home Medications Medication Instructions Recorded Confirmed Type Betamethasone Dipropionate 1 applic TOPICAL BID PRN 01/15/21 01/15/21 History [Diprolene AF 0.05% Cream] amLODIPine [Norvasc] 10 mg PO DAILY 01/15/21 01/15/21 History Allergies Allergy/AdvReac Type Severity Reaction Status Date / Time codeine Allergy Itching Verified 01/15/21 21:56 Physical Exam Vitals: Vital Signs Temp Pulse Pulse Resp BP BP Pulse Ox 01/16/21 07:00 97.9 F 76 18 137/71 96 01/16/21 02:05 97 17 01/16/21 00:30 97.0 F L 97 17 132/74 96 01/15/21 22:41 98.1 F 97 16 114/73 95 01/15/21 21:50 77 17 160/98 01/15/21 20:18 87 16 130/92 98 01/15/21 19:13 98.3 F 105 H 18 139/96 97 Intake and Output 01/15/21 01/16/21 01/16/21 22:59 06:59 14:59 Intake Total 70.5 Balance 70.5 Intake: Intake, IV Titration 70.5 Amount Heparin Sod,Pork in 0.45% 70.5 NaCl 25,000 unit In 0.45 % NaCl 1 250ml.bag @ 9. 381 UNITS/KG/HR 10 mls/hr IV .Q24H [facility] Rx#: [id number] Other: Voiding Method Toilet # Voids 2 0 Weight 106.594 kg - Constitutional General appearance: average body habitus, cooperative, disheveled - EENT Eyes: PERRLA ENT: hearing grossly normal Ears: bilateral: normal - Neck Carotids: bilateral: upstroke normal Thyroid: bilateral: normal size - Respiratory Respiratory: bilateral: CTA - Cardiovascular Rhythm: regular Heart sounds: normal: S1, S2 - Gastrointestinal General gastrointestinal: soft - Integumentary Integumentary: normal - Neurologic Neurologic: CNII-XII intact - Musculoskeletal Musculoskeletal: gait normal, generalized weakness, strength equal bilaterally - Psychiatric Psychiatric: A&O x's 3, appropriate affect, intact judgment & insight Results CBC & Chem 7: 01/15/21 19:24 01/15/21 19:24 Labs: Abnormal Lab Results - Last 24 Hours (Table) 01/15/21 01/15/21 01/16/21 Range/Units 19:24 19:24 04:02 WBC 11.1 H (3.8-10.6) k/uL Sodium 135 L (137-145) mmol/L Glucose 113 H (74-99) mg/dL Triglycerides 179.0 H (0.0-149.0) mg/dL HDL Cholesterol 34.0 L (40.0-60.0) mg/dL Thrombosis Risk Factor Assmnt - Choose All That Apply Each Factor Represents 1 point: Age 41-60 years, Obesity (BMI >25) Other Risk Factors: No Other congenital or acquired thrombophilia - If yes, enter type in comment: No Thrombosis Risk Factor Assessment Total Risk Factor Score: 2 Thrombosis Risk Factor Assessment Level: Low Risk Assessment and Plan Assessment: Right-sided chest wall pain, currently stable and improved, atypical in nature may be musculoskeletal Atrial flutter Hypertension Dyslipidemia Plan: Patient initially reluctant but now agreeable for testing, Awaiting stress test and echocardiogram,
[2021-01-16] MEDS: SODIUM CHLORIDE 0.9% 1,000 ML IV SCH (22:13)
[2021-01-16] MEDS: HEPARIN SOD,PORK IN 0.45% NACL 25,000 UNIT in 0.45% NACL 1 250ML.BAG IV SCH (22:25)
[2021-01-17] MEDS: NITROGLYCERIN OINT 1 INCH/GM PACKET TOPICAL SCH ×2 (00:12→06:01)
[2021-01-17 05:50] LABS: Basophils # (A) 0.1 k/uL (0-0.2); Basophils % (A) 1 %; Eosinophils # (A) 0.2 k/uL (0-0.7); Eosinophils % (A) 2 %; HCT 48.1 % (39.0-53.0); HGB 15.7 gm/dL (13.0-17.5); Lymphocytes # (A) 2.3 k/uL (1.0-4.8); Lymphocytes % (A) 25 %; MCH 31.4 pg (25.0-35.0); MCHC 32.7 g/dL (31.0-37.0); Mean Platelet Volume 8.4; Monocytes # (A) 0.5 k/uL (0-1.0); Monocytes % (A) 6 %; Neutrophils % (A) 66 %; Platelet Count 202 k/uL (150-450); RBC 5.01 m/uL (4.30-5.90); RDW 12.7 % (11.5-15.5); WBC 9.1 k/uL (3.8-10.6)
[2021-01-17] MEDS ORDERED: DOBUTamine DRIP for NUC MED 500 MG in DEXTROSE/WATER 1 250ML.BAG IV PRN (07:48)
--- NOTE | 2021-01-17 11:04 | P.PN ---
Subjective This is a 55-year-old male past medical history of hypertension, chronic nicotine dependence. 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 Patient presents to the hospital on 01/15/2021 with chest pain. He states that dilaudid does help relieve the pain. EKG showed sinus rhythm with mild T-wave changes in the anterior lateral leads. Patient's EKG in 1999 with similar findings with T wave inversion in anterior lateral and inferior leads. Troponin negative x 3. Echocardiogram and stress echo was recommended, patient is no agreeable to stress test. Patient seen and examined at bedside, no acute distress. Continues to have chest pain. Denies shortness of breath, nausea, palpitations, lightheadedness, dizziness. Blood pressure 105/69, HR 103, afebrile, maintaining saturations on room air. Laboratory data reviewed CBC unremarkable, BNP pending, triglycerides 179, cholesterol 138, LDL 60, HDL 24. Patient currently maintained on aspirin 1 mg daily, Lasix 10 mg daily. Telemetry reviewed patient sinus mechanism heart rate trends 70s80s. PHYSICAL EXAMINATION CONSTITUTIONAL: No apparent distress. HEENT: Neck Supple No JVD CHEST EXAMINATION: Lungs are clear to auscultation. No chest wall tenderness is noted on palpation or with deep breathing. HEART EXAMINATION: Regular rate and rhythm. S1, S2 heard. No murmurs, gallops or rub. ABDOMEN: Soft, nontender. Positive bowel sounds. EXTREMITIES: 2+ peripheral pulses, no lower extremity edema and no calf tenderness. NEUROLOGIC EXAMINATION: Patient is awake, alert and oriented x3. ASSESSMENT Chest pain, atypical, acute coronary syndrome has been ruled out. History of hypertension Chronic nicotine dependence PLAN Obtain 2D echocardiogram and doppler study to assess cardiac structure and function. Perform dobutamine stress test to assess for stress induced cardiac ischemia. Patient unable to walk on treadmill. If abnormal will consider coronary angiography. Smoking cessation discussed and highly recommended. Lipid panel reviewed recommend heart healthy lifestyle to minimize ASCVD risk If stress test normal and echocardiogram with no acute findings, ok to discharge from cardiology perspective. Thank you kindly for this consultation. Nurse Practitioner note has been reviewed, I agree with a documented findings and plan of care. Patient was seen and examined. Objective - Vital Signs Vital signs: Vital Signs Temp 97.6 F 01/17/21 07:00 Pulse 103 H 01/17/21 07:00 Resp 16 09/27/21 07:39 BP 105/69 01/17/21 07:00 Pulse Ox 97 01/17/21 07:00 Intake & Output 01/16/21 01/17/21 01/17/21 18:59 06:59 18:59 Intake Total 600 960 Balance 600 960 Intake: Intake, IV Titration 120 Amount Sodium Chloride 0.9% 1, 120 000 ml @ 20 mls/hr IV . Q24H [facility] Rx#:[id number] Oral 480 960 Other: Voiding Method Toilet # Voids 1 1 - Labs CBC & Chem 7: 01/17/21 05:08 01/15/21 19:24
--- NOTE | 2021-01-17 12:53 | ECHOF ---
Referral Reason:Chest pain MEASUREMENTS -------- HEIGHT: 180.3 cm WEIGHT: 106.6 kg BP: RVIDd: 2.7 cm (< 3.3) IVSd: 1.9 cm (0.6 - 1.1) LVIDd: 3.8 cm (3.9 - 5.3) LVPWd: 1.4 cm (0.6 - 1.1) IVSs: 2.2 cm LVIDs: 1.2 cm LVPWs: 2.2 cm Ao Diam: 4.1 cm (2.0 - 3.7) AV Cusp: 2.5 cm (1.5 - 2.6) LA Diam: 3.1 cm (2.7 - 3.8) MV EXCURSION: 9.024 mm (> 18.000) MV EF SLOPE: 40 mm/s (70 - 150) EPSS: 0.5 cm MV E Hussain: 0.48 m/s MV DecT: 136 ms MV A Hussain: 0.56 m/s MV E/A Ratio: 0.85 RAP: 5.00 mmHg RVSP: 14.00 mmHg FINDINGS -------- This was a technically difficult study with suboptimal views. The left ventricular size is normal. There is moderate concentric left ventricular hypertrophy. O verall left ventricular systolic function is normal with, an EF between 55 - 60 %. The right ventricle is normal in size. The left atrial size is normal. The right atrial size is normal. xx ml of Lumason was utilized for enhancement of images. The aortic valve is trileaflet and appears structurally normal. The mitral valve is normal. There is trace mitral regurgitation. The tricuspid valve appears structurally normal. Trace tricuspid regurgitation present. Right michelle tricular systolic pressure is normal at < 35 mmHg. There is no pulmonic regurgitation present. The aortic root is dilated measuring 4.1 cm. IVC Not well visulized. There is no pericardial effusion. CONCLUSIONS -------- 1. The left ventricular size is normal. 2. There is moderate concentric left ventricular hypertrophy. 3. Overall left ventricular systolic function is normal with, an EF between 55 - 60 %. 4. There is trace mitral regurgitation. 5. Trace tricuspid regurgitation present. 6. The aortic root is dilated measuring 4.1 cm 7. There is no pericardial effusion. PROFESSOR OF PATHOLOGY: Caity Negron DALI
[2021-01-17] MEDS: FUROSEMIDE 20 MG TAB PO SCH (14:19)
[2021-01-17 15:18] VITALS: BP 160/100; PULSE 104; RESP 18; TEMP 98.2
--- NOTE | 2021-01-17 17:26 | P.STRESS ---
- Stress Test Note Stress Test Results/Findings: Exam Performed: dobutamine stress echo Exam Date: 01/17/21 Reason for Exam: CHEST PAIN, [place] Height: 6 ft 1 in Weight: 106.59 kg Protocol: DOBUTAMINE STRESS ECHO Stage: 4 Duration of Exercise: 12:24 INFUSION TIME Resting Heart Rate: 91 Resting Blood Pressure: 160/100 Maximum Achieved Heart Rate: 144 Maximum Achieved Blood Pressure: 175/101 85% PMHR: 142 100% PMHR: 167 METS: NA Technologist Comment: Stress Test Results/Findings: Patient underwent dobutamine stress echo with infusion of dobutamine into Stage 4 for a total of 12 minutes, 24 seconds. Patient's maximum heart rate was 144 which represented 86% age-predicted maximum heart rate. Stress EKG portion: At baseline patient's EKG showed Sinus rhythm, normal axis, LVH with nonspecific ST depressions in the inferior and lateral leads. At peak dobutamine infusion, EKG showed Saturation at baseline EKG abnormalities which is nondiagnostic given baseline abnormal EKG. Stress echo portion: 2-D echocardiogram was performed in the parasternal long, personal short, apical 2 and apical four-chamber views at rest, low-dose, peak infusion and in recovery. At baseline, echocardiogram showed left ventricular ejection fraction 55% without wall motion abnormalities. With peak infusion, echocardiogram shows improvement in left ventricular ejection fraction, increase contractility, decrease in left ventricular dimension without wall motion abnormalities consistent with a normal response to dobutamine. Conclusions: 1. Nondiagnostic stress EKG portion given baseline EKG abnormalities. 2. Normal stress echo response to dobutamine infusion without any evidence of inducible ischemia.
[2021-01-18] MEDS ORDERED: ASPIRIN 81 MG PO SCH (09:00)
== END 2021-01-17 19:14 | disposition home or self-care (01) ==
LOC: EC 19:11 → 6NMEDSUR 21:15
PROVIDERS: ADMIT Family Medicine; ATTEND Family Medicine
DX: R07.89 Other chest pain (principal); I48.92 Unspecified atrial flutter; I48.20 Chronic atrial fibrillation, unspecified; I11.9 Hypertensive heart disease without heart failure; Z20.822 Contact with and (suspected) exposure to COVID-19; F17.210 Nicotine dependence, cigarettes, uncomplicated; E78.5 Hyperlipidemia, unspecified; D72.829 Elevated white blood cell count, unspecified; M25.511 Pain in right shoulder; Z79.899 Other long term (current) drug therapy; Z88.5 Allergy status to narcotic agent; Z63.0 Problems in relationship with spouse or partner; Z98.52 Vasectomy status
CPT/HCPCS: 99291; 96376; 96366 ×2; 96365; 96375; 36415; 93005; 93306; 93351; 85379; 83880; 80061; 80053; 82550; 83690; 83735; 84484 ×2; 85025 ×2; 85610 ×2; 85730 ×2; 87635; 71046; G0378 ×3; J1250; J1644 ×3; J1170; J1885; Q9950

== ENCOUNTER 2021-02-09 19:52 | Emergency (ER) | payer OTHER ==
[2021-02-09 19:57] VITALS: TEMP 98
[2021-02-09] MEDS ORDERED: diphenhydrAMINE 50 MG/ML 1 ML VIAL IVP STA (20:30)
[2021-02-09] MEDS ORDERED: MORPHINE SULFATE 4 MG/ML SYRINGE IV STA (20:30)
[2021-02-09] MEDS ORDERED: ASPIRIN 81 MG PO STA (20:30)
--- NOTE | 2021-02-09 20:30 | ED ---
General Adult HPI - General Chief complaint: Chest Pain Stated complaint: Chest Pain Time Seen by Provider: 02/09/21 20:04 Source: patient, RN notes reviewed, old records reviewed Mode of arrival: ambulatory Limitations: no limitations - History of Present Illness Initial comments: Patient was evaluated when he was placed in a room.Patient is a 55-year-old male with past medical history remarkable for atrial flutter, hypertension who presents emergency department complaint of right-sided chest pain. He was seen previously approximately one month ago for similar complaints. Workup at that time revealed no acute findings. He was discharged home in stable condition. States that he has been since having intermittent right-sided chest pain that is not associated with anything. Describes it as a sharp stabbing pain located along the rib space his midaxillary line radiating towards his sternum. When it is there, he does have shortness of breath secondary to the pain. Denies any fevers, chills, cough. Denies any abdominal pain, nausea, vomiting. Denies a history of being on blood thinners or history of blood clots. Denies any neurological complaints at this time. Patient is also describing intermittent episodes of breaking out in an urticarial rash. This is when the pain is at its worse. It is located in various regions over his body and he believes it is stress related. It typically resolves on its own or with the help of Benadryl. He currently has it at this time. He has no known acute ALLERGIES. Has not followed up for ALLERGIES. - Related Data Home Medications Medication Instructions Recorded Confirmed Betamethasone Dipropionate 1 applic TOPICAL BID PRN 01/15/21 02/09/21 [Diprolene AF 0.05% Cream] amLODIPine [Norvasc] 10 mg PO DAILY 01/15/21 02/09/21 Furosemide [Lasix] 10 mg PO DAILY 02/09/21 02/09/21 Melatonin 5 mg PO HS 02/09/21 02/09/21 busPIRone HCl [Buspar] 10 mg PO BID 02/09/21 02/09/21 diphenhydrAMINE HCL [Benadryl] 25 mg PO DAILY PRN 02/09/21 02/09/21 Previous Rx's Medication Instructions Recorded Lidocaine 5% Patch [Lidoderm 5% 1 patch TOPICAL DAILY PRN 7 Days 02/09/21 Patch] #7 patch Allergies Allergy/AdvReac Type Severity Reaction Status Date / Time codeine Allergy Itching Verified 02/09/21 22:38 Review of Systems ROS Statement: Those systems with pertinent positive or pertinent negative responses have been documented in the HPI. Review of Systems: CONST: Denies fever EYES: Denies blurry vision ENT: Denies nasal congestion C/V: Endorses right-sided chest pain/rib pain. RESP: Denies shortness of breath GI: Denies abdominal pain : Denies dysuria SKIN: Endorses urticaria MSK: Denies joint pain. NEURO: Denies headache ROS Other: All systems not noted in ROS Statement are negative. Past Medical History Past Medical History: Atrial Flutter, Hypertension Additional Past Medical History / Comment(s): 06/24/14 Pt present to [facility] ER with c/o midsternal ches discomfort that radiated to his back and dizziness and headache that started yesterday. Pt also c/o R shoulder discomfort for the past 2 weeks - the R shoulder pain is affected by positioning. Other HX: regular irregular heart beat. History of Any Multi-Drug Resistant Organisms: None Reported Past Surgical History: No Surgical Hx Reported Additional Past Surgical History / Comment(s): vasectomy x 2, facsiotomy Past Anesthesia/Blood Transfusion Reactions: No Reported Reaction Past Psychological History: No Psychological Hx Reported Smoking Status: Current every day smoker Past Alcohol Use History: None Reported Past Drug Use History: None Reported - Past Family History Father Family Medical History: Unable to Obtain Additional Family Medical History / Comment(s): Father committed suicide. Mother Family Medical History: No Reported History Additional Family Medical History / Comment(s): Mother is 69 yrs old. She is healthy but is currently being tx for a sore on her leg with a wound vac. General Exam - General Exam Comments Initial Comments: General: Appears in mild to moderate distress secondary to chest pain. HEAD: Normal with no signs of head trauma. EYES: PERRLA, EOMI, conjunctiva normal, no discharge. Pupils are 3 mm and equal bilaterally. ENT: Hearing grossly intact, normal oropharynx. RESPIRATORY: Clear breath sounds bilaterally. No wheezes, rales, or rhonchi. C/V: Regular rate and rhythm. S1 and S2 auscultated, no edema, peripheral pulses 2+ and intact throughout. Patient's chest pain is somewhat reproducible to palpation along the inferior intercostal space. ABD: Abd is soft, nontender, nondistended EXT: Normal range of motion, no obvious deformity SKIN: Non-localized or focal urticaria rashes located over the patient's body. This pruritic per patient. Does not follow any specific dermatomal distribution. NEURO: Alert and oriented 4. No focal sensory strength deficits. Limitations: no limitations Course Vital Signs 02/09/21 02/09/21 19:54 22:30 Temperature 98.0 F Pulse Rate 99 81 Respiratory 19 18 Rate Blood Pressure 183/106 144/96 O2 Sat by Pulse 97 97 Oximetry Medical Decision Making - Medical Decision Making Based on the patient's presentation and physical exam, I'm concerned for possible cardiac etiology for his current complaints. Cannot rule out the possibility of pulmonary embolism either. While scores low. Therefore we will obtain a d-dimer as well as troponin, EKG, chest x-ray. He will be sent medically treated for his urticaria or rash with Benadryl which I believe is secondary to an exposure stress. Also be given analgesia with IV morphine, as well as given an aspirin. Patient was in agreement this plan. EKG showed chronic T wave and ST segment findings without any acute signs of ischemia. There is a chronic incomplete RBBB. Patient's chest x-ray revealed findings concerning for possible multifocal pneumonia with scattered opacities in the right lower lobe and on the left side as well. Repeat imaging is recommended to rule out possibility of a mass. Laboratory studies are remarkable for an elevated d-dimer of 0.85. Troponin is negative. Remainder the laboratory studies are unremarkable. I discussed with the patient that due to his elevated d-dimer would like to rule out the possibility of pulmonary umbel is him, and he was in agreement. CT angiogram be obtained. He'll be redosed analgesia as well as lidocaine patch for pain. Patient's CT imaging revealed no signs of acute pulmonary embolism and also no signs of consolidation or infectious etiology. There is pulmonary emphysema. Otherwise CT imaging is unremarkable. On reevaluation, patient's pain is much improved following additional analgesia. Discussed the imaging as well as is normal workup otherwise with the patient. I explained that I do believe is safe for him to be discharged home. Heart score is 2. He was in agreement this plan and would prefer to be discharged home, as this is somewhat last time when they found no etiology for his symptoms. I would like him to follow up with his PCP in the next few days and he was in agreement with the plan. I will provide the patient with a prescription for lidocaine patches. I instructed the patient to follow up with their PCP in the next 3 days. I explained that the patient should return to the emergency department if they experience any worsening symptoms. Strict return precautions were discussed with the patient. The patient expressed understanding of these instructions. I answered all questions that the patient had. The patient was discharged home in fair condition with their prescriptions and follow up information. - Lab Data Result diagrams: 02/09/21 20:54 02/09/21 20:54 Lab Results 02/09/21 02/09/21 02/09/21 Range/Units 20:54 20:54 20:54 WBC 10.7 H (3.8-10.6) k/uL RBC 4.97 (4.30-5.90) m/uL Hgb 15.4 (13.0-17.5) gm/dL Hct 47.2 (39.0-53.0) % MCV 95.0 (80.0-100.0) fL MCH 30.9 (25.0-35.0) pg MCHC 32.5 (31.0-37.0) g/dL RDW 13.1 (11.5-15.5) % Plt Count 218 (150-450) k/uL MPV 8.3 Neutrophils % 64 % Lymphocytes % 24 % Monocytes % 8 % Eosinophils % 2 % Basophils % 1 % Neutrophils # 6.8 (1.3-7.7) k/uL Lymphocytes # 2.6 (1.0-4.8) k/uL Monocytes # 0.8 (0-1.0) k/uL Eosinophils # 0.2 (0-0.7) k/uL Basophils # 0.1 (0-0.2) k/uL PT 9.4 (9.0-12.0) sec INR 0.9 (<1.2) APTT 23.5 (22.0-30.0) sec D-Dimer 0.85 H (<0.60) mg/L FEU Sodium 137 (137-145) mmol/L Potassium 4.1 (3.5-5.1) mmol/L Chloride 103 (98-107) mmol/L Carbon Dioxide 26 (22-30) mmol/L Anion Gap 8 mmol/L BUN 13 (9-20) mg/dL Creatinine 1.03 (0.66-1.25) mg/dL Est GFR (CKD-EPI)AfAm >90 (>60 ml/min/1.73 sqM) Est GFR (CKD-EPI)NonAf 83 (>60 ml/min/1.73 sqM) Glucose 96 (74-99) mg/dL Calcium 9.7 (8.4-10.2) mg/dL Magnesium 1.9 (1.6-2.3) mg/dL Total Bilirubin 0.4 (0.2-1.3) mg/dL AST 30 (17-59) U/L ALT 24 (4-49) U/L Alkaline Phosphatase 103 (38-126) U/L Troponin I (0.000-0.034) ng/mL Total Protein 7.1 (6.3-8.2) g/dL Albumin 3.8 (3.5-5.0) g/dL 02/09/21 Range/Units 20:54 WBC (3.8-10.6) k/uL RBC (4.30-5.90) m/uL Hgb (13.0-17.5) gm/dL Hct (39.0-53.0) % MCV (80.0-100.0) fL MCH (25.0-35.0) pg MCHC (31.0-37.0) g/dL RDW (11.5-15.5) % Plt Count (150-450) k/uL MPV Neutrophils % % Lymphocytes % % Monocytes % % Eosinophils % % Basophils % % Neutrophils # (1.3-7.7) k/uL Lymphocytes # (1.0-4.8) k/uL Monocytes # (0-1.0) k/uL Eosinophils # (0-0.7) k/uL Basophils # (0-0.2) k/uL PT (9.0-12.0) sec INR (<1.2) APTT (22.0-30.0) sec D-Dimer (<0.60) mg/L FEU Sodium (137-145) mmol/L Potassium (3.5-5.1) mmol/L Chloride (98-107) mmol/L Carbon Dioxide (22-30) mmol/L Anion Gap mmol/L BUN (9-20) mg/dL Creatinine (0.66-1.25) mg/dL Est GFR (CKD-EPI)AfAm (>60 ml/min/1.73 sqM) Est GFR (CKD-EPI)NonAf (>60 ml/min/1.73 sqM) Glucose (74-99) mg/dL Calcium (8.4-10.2) mg/dL Magnesium (1.6-2.3) mg/dL Total Bilirubin (0.2-1.3) mg/dL AST (17-59) U/L ALT (4-49) U/L Alkaline Phosphatase (38-126) U/L Troponin I <0.012 (0.000-0.034) ng/mL Total Protein (6.3-8.2) g/dL Albumin (3.5-5.0) g/dL - EKG Data -: EKG Interpreted by Me EKG Comments: 12-lead Electrocardiogram Interpretation Note EKG was reviewed and interpreted by myself. 12-lead ECG performed at 2002 is interpreted by me as revealing normal sinus rhythm at a rate of 95 beats per minute. [place] is normal. ID interval is 156 ms, QRS duration is 106 ms, QTc is 477 ms.. Patient does have ST segment depressions and T-wave inversions in leads V3 through V6 which are seen on prior EKGs. These are minimal. They appear to be chronic.. R wave progression across the precordium wasdelayed. There is an incomplete RBBB. By my interpretation this EKG is non-diagnostic for acute ischemia. Patient has chronic T-wave inversions and mild ST segment depressions in lead V3 through V6. These are seen on prior EKGs. Disposition Clinical Impression: Atypical chest pain, Chest wall pain, Urticaria Disposition: HOME SELF-CARE Condition: Fair Instructions (If sedation given, give patient instructions): Chest Pain (ED) Prescriptions: Lidocaine 5% Patch [Lidoderm 5% Patch] 1 patch TOPICAL DAILY PRN 7 Days #7 patch PRN Reason: Pain Is patient prescribed a controlled substance at d/c from ED?: No Referrals: Holger Myers MD [Primary Care Provider] - 1-2 days
[2021-02-09 21:05] LABS: Basophils # (A) 0.1 k/uL (0-0.2); Basophils % (A) 1 %; Eosinophils # (A) 0.2 k/uL (0-0.7); Eosinophils % (A) 2 %; HCT 47.2 % (39.0-53.0); HGB 15.4 gm/dL (13.0-17.5); Lymphocytes # (A) 2.6 k/uL (1.0-4.8); Lymphocytes % (A) 24 %; MCH 30.9 pg (25.0-35.0); MCHC 32.5 g/dL (31.0-37.0); Mean Platelet Volume 8.3; Monocytes # (A) 0.8 k/uL (0-1.0); Monocytes % (A) 8 %; Neutrophils # (A) 6.8 k/uL (1.3-7.7); Neutrophils % (A) 64 %; Platelet Count 218 k/uL (150-450); RBC 4.97 m/uL (4.30-5.90); RDW 13.1 % (11.5-15.5); WBC 10.7 k/uL (3.8-10.6)
[2021-02-09 21:16] LABS: ALT 24 U/L (4-49); AST 30 U/L (17-59); African American GFR (CKD) >90 (>60 ml/min/1.73 sqM); Albumin 3.8 g/dL (3.5-5.0); Alkaline Phosphatase 103 U/L (38-126); Anion Gap 8 mmol/L; Blood Urea Nitrogen 13 mg/dL (9-20); Calcium 9.7 mg/dL (8.4-10.2); Carbon Dioxide 26 mmol/L (22-30); Chloride 103 mmol/L (98-107); Glucose 96 mg/dL (74-99); Magnesium 1.9 mg/dL (1.6-2.3); Non-African American GFR(CKD) 83 (>60 ml/min/1.73 sqM); Potassium 4.1 mmol/L (3.5-5.1); Sodium 137 mmol/L (137-145); Total Bilirubin 0.4 mg/dL (0.2-1.3); Total Protein 7.1 g/dL (6.3-8.2)
[2021-02-09 21:18] LABS: INR 0.9 (<1.2); Partial Thromboplastin Time 23.5 sec (22.0-30.0); Prothrombin Time 9.4 sec (9.0-12.0)
[2021-02-09] MEDS ORDERED: HYDROmorphone 0.5 MG/0.5 ML SYRINGE IVP STA (21:34)
--- NOTE | 2021-02-09 21:34 | XR ---
EXAMINATION TYPE: XR chest 2V DATE OF EXAM: 02/09/2021 COMPARISON: 01/15/2021 HISTORY: 55 years Male. STUDY INDICATION GIVEN: Chest Pain . TECHNIQUE: Frontal lateral chest radiographs IMPRESSION: There is a new patchy opacity in the right lower lobe. There are scattered peripheral patchy opacitie s in the left mid and lower hemithorax. There is a stable right upper medial opacity. Findings overal l are concerning for multifocal pneumonia. Underlying mass cannot be entirely excluded, Consider repeat imaging 2-3 months to rule out developing mass and/or obtaining a noncontrast CT of t he chest after appropriate treatment. No pneumothorax or pleural effusion. The cardiomediastinal silhouette is within normal limit. No acute osseous abnormality.
[2021-02-09] MEDS ORDERED: LIDOCAINE 5% PATCH TOPICAL STA (21:44)
--- NOTE | 2021-02-09 22:45 | CT ---
EXAMINATION TYPE: CT chest angio for PE DATE OF EXAM: 02/09/2021 COMPARISON: None HISTORY: Chest pain, elevated d-dimer CT DLP: 524 mGycm Automated exposure control for dose reduction was used. CONTRAST: Performed with IV Contrast, patient injected with 100 mL of Isovue 300. Images obtained from the thoracic inlet to the diaphragm with IV contrast. There are 3-D post process ed images. There is some emphysema in the upper lung javier. There is no mediastinal adenopathy. There are no hi lar masses. Thoracic aorta is intact. There is no aneurysm or dissection. The ascending aorta measure s 3.8 cm. There is normal contrast opacification of the pulmonary arteries. There are no filling defects. The lungs are clear of consolidation. There is no suspicious pulmonary mass. There is minimal subsegm ental atelectasis at the posterior lung bases. Thoracic spine is intact. Sternum is intact. Upper abdominal soft tissues are intact. IMPRESSION: No evidence of pulmonary embolism. Pulmonary emphysema.
[2021-02-09 22:53] VITALS: BP 144/96; PULSE 81; RESP 18
== END 2021-02-09 23:15 | disposition home or self-care (01) ==
LOC: EC 19:52
DX: R07.89 Other chest pain (principal); L50.9 Urticaria, unspecified; I10 Essential (primary) hypertension; J43.9 Emphysema, unspecified; F17.200 Nicotine dependence, unspecified, uncomplicated; Z79.899 Other long term (current) drug therapy
CPT/HCPCS: 36415; 93005; 85379; 80053; 83735; 84484; 85025; 85610; 85730; 71046; 71275; 99285; 96374; 96375 ×2; J2270; J1200; J1170

== ENCOUNTER → 2021-02-21 | Outpatient (CLI) | payer OTHER ==
--- NOTE | 2021-02-21 15:52 | NM ---
EXAMINATION TYPE: NM hepatobiliary w EF DATE OF EXAM: 02/21/2021 COMPARISON: NONE HISTORY: Right upper quadrant pain TECHNIQUE: After the intravenous administration of 3.95 mCi Tc 99m Mebrofenin hepatobiliary scintigra phy is performed. Immediate images post injection. FINDINGS: There is satisfactory initial accumulation of tracer by the liver. The gallbladder is visualized wit hin 24 minutes. The small bowel activity is noted within 2 minutes. At one hour 8 ounces of oral en sure plus is given to mimic CCK and gallbladder ejection fraction is calculated at 77 %, in the lonnie l range. Therefore there is no scintigraphic evidence of cystic or common bile duct obstruction to s uggest acute cholecystitis or gallbladder dyskinesia. IMPRESSION: Exam is within normal limits.
== END | disposition home or self-care (01) ==
LOC: RADNMMAIN 13:05
PROVIDERS: ATTEND Family Medicine
DX: R10.11 Right upper quadrant pain (principal)
CPT/HCPCS: 78226; A9537

== ENCOUNTER 2023-03-15 21:06 | Emergency (ER) | payer BC, OTHER ==
--- NOTE | 2023-03-15 21:26 | ED ---
Chest Pain HPI - General Chief Complaint: Chest Pain Stated Complaint: Hypertension Time Seen by Provider: 03/15/23 21:10 Source: patient, EMS Mode of arrival: EMS Limitations: no limitations - History of Present Illness Initial Comments: This patient is a 57-year-old man who presents here with complaint that his blood pressure is elevated. Patient states that he has history of hypertension. He takes metoprolol, and has been taking it as directed. He states that he has been under stress and noted that over the past few days his blood pressures been trending higher. Today it was 220/120 and that prompted him to come to the emergency department. The patient states that he has a mild generalized headache, not worst headache of life. He has also noted some occasional twinges in his left chest. He states that the pain has not been persistent. He has not had any exertional component of pain. No diaphoresis, dyspnea, nausea or vomiting. MD Complaint: other Onset/Timin -: days(s) Onset: during rest Pain Location: left chest Pain Radiation: none Severity: mild Quality: dull Consistency: intermittent Improves With: nothing Worsens With: nothing Treatments Prior to Arrival: none - Related Data Home Medications Medication Instructions Recorded Confirmed Albuterol Sulfate [Albuterol 2 puff PO RT-Q4H PRN 11/11/22 11/11/22 Sulfate Hfa] Budesonide/Formoterol Fumarate 2 puff INHALATION RT-BID 11/11/22 11/11/22 [Symbicort 160-4.5 Mcg Inhaler] Clotrimazole Cream [Lotrimin Cream] 1 applic TOPICAL BID 11/11/22 11/11/22 Dextroamphetamine/Amphetamine 20 mg PO TID 11/11/22 11/11/22 [Adderall] Nicotine 21Mg/24Hr Patch [Habitrol] 1 patch TRANSDERM DAILY 11/11/22 11/11/22 Silver Sulfadiazine [SSD 1% Cream] 1 applic TOPICAL BID 11/11/22 11/11/22 traMADol HCL 50 mg PO TID 11/11/22 11/11/22 Previous Rx's Medication Instructions Recorded Metoprolol Tartrate [Lopressor] 50 mg PO BID 90 Days #180 tab 11/13/22 amLODIPine [Norvasc] 5 mg PO DAILY 90 Days #90 tab 11/13/22 cloNIDine HCL 0.1 mg PO Q8H PRN #20 tab 03/16/23 Allergies Allergy/AdvReac Type Severity Reaction Status Date / Time codeine Allergy Itching Verified 03/15/23 21:20 Review of Systems ROS Statement: Those systems with pertinent positive or pertinent negative responses have been documented in the HPI. ROS Other: All systems not noted in ROS Statement are negative. Constitutional: Denies: fever, chills, weakness Eyes: Denies: vision change Respiratory: Denies: cough, dyspnea, wheezes Cardiovascular: Denies: chest pain, palpitations, edema Gastrointestinal: Denies: abdominal pain, nausea, vomiting, diarrhea Genitourinary: Denies: dysuria, hematuria Musculoskeletal: Denies: back pain Skin: Denies: rash Neurological: Reports: headache. Denies: weakness, numbness, paresthesias EKG Findings - EKG Results: EKG: interpreted by LEENA, sinus rhythm (Rate 70 bpm), normal axis - Blocks, [place], Hypertrophy, ST Abn: AV and intraventricular conduction: right bundle branch block (fixed/intermittent, complete/incomplete) Past Medical History Past Medical History: Atrial Flutter, Hypertension Additional Past Medical History / Comment(s): 06/24/14 Pt present to [facility] ER with c/o midsternal ches discomfort that radiated to his back and dizziness and headache that started yesterday. Pt also c/o R shoulder discomfort for the past 2 weeks - the R shoulder pain is affected by positioning. Other HX: regular irregular heart beat. History of Any Multi-Drug Resistant Organisms: None Reported Past Surgical History: No Surgical Hx Reported Additional Past Surgical History / Comment(s): vasectomy x 2, facsiotomy Past Anesthesia/Blood Transfusion Reactions: No Reported Reaction Past Psychological History: No Psychological Hx Reported Smoking Status: Never smoker Past Alcohol Use History: None Reported Past Drug Use History: None Reported - Past Family History Father Family Medical History: Unable to Obtain Additional Family Medical History / Comment(s): Father committed suicide. Mother Family Medical History: No Reported History Additional Family Medical History / Comment(s): Mother is 69 yrs old. She is healthy but is currently being tx for a sore on her leg with a wound vac. General Exam Limitations: no limitations General appearance: alert, in no apparent distress Head exam: Present: atraumatic, normocephalic Eye exam: Present: normal appearance. Absent: scleral icterus, conjunctival injection Neck exam: Present: normal inspection Respiratory exam: Present: normal lung sounds bilaterally. Absent: respiratory distress, wheezes, rales, rhonchi, stridor Cardiovascular Exam: Present: regular rate, normal rhythm, normal heart sounds. Absent: systolic murmur, diastolic murmur, rubs, gallop GI/Abdominal exam: Present: soft. Absent: distended, tenderness, guarding, rebound, rigid, mass Extremities exam: Present: normal inspection, normal capillary refill. Absent: pedal edema, calf tenderness Back exam: Present: normal inspection. Absent: CVA tenderness (R), CVA tenderness (L) Neurological exam: Present: alert Skin exam: Present: warm, dry, intact, normal color. Absent: rash Course Vital Signs 03/15/23 03/15/23 03/15/23 21:10 21:51 22:30 Temperature 98.2 F Pulse Rate 77 67 66 Respiratory 20 34 H 10 L Rate Blood Pressure 157/99 145/101 145/92 O2 Sat by Pulse 99 99 Oximetry 03/15/23 03/15/23 03/16/23 23:00 23:30 00:00 Temperature Pulse Rate 73 71 67 Respiratory 21 27 H 22 Rate Blood Pressure 143/89 154/98 148/97 O2 Sat by Pulse 96 96 Oximetry 03/16/23 01:39 Temperature 98.7 F Pulse Rate 70 Respiratory 16 Rate Blood Pressure 133/99 O2 Sat by Pulse 99 Oximetry Chest Pain MDM - [facility] Patient had chest x-ray which I interpreted as negative for acute infiltrate, pneumothorax, congestive heart failure Was pt. sent in by a medical professional or institution (, PA, MALL MANAGER, urgent care, hospital, or longterm...) When possible be specific @ -[No] Did you speak to anyone other than the patient for history (EMS, parent, family, police, friend...)? What history was obtained from this source @ -[No] Did you review nursing and triage notes (agree or disagree)? Why? @ -[I reviewed and agree with nursing and triage notes] Were old charts reviewed (outside hosp., previous admission, EMS record, old EKG, old radiological studies, urgent care reports/EKG's, longterm records)? Report findings @ -[No old charts were reviewed] Differential Diagnosis (chest pain, altered mental status, abdominal pain women, abdominal pain men, vaginal bleeding, weakness, fever, dyspnea, syncope, headache, dizziness, GI bleed, back pain, seizure, CVA, palpatations, mental health, musculoskeletal)? @ -[Amphetamine Toxicity Anxiety Disorders Apnea, Sleep Cocaine-Related Cardiomyopathy Heart Failure Hyperthyroidism, Thyroid Storm, and Graves Disease Hypertrophic Cardiomyopathy Myocardial Infarction Phencyclidine Toxicity Primary Aldosteronism Stroke, Hemorrhagic Stroke, Ischemic EKG interpreted by me (3pts min.). @ -[Interpreted As above] X-rays interpreted by me (1pt min.). @ -Interpreted as above CT interpreted by me (1pt min.). @ -[None done] U/S interpreted by me (1pt. min.). @ -[None done] What testing was considered but not performed or refused? (CT, X-rays, U/S, labs)? Why? @ -[None] What meds were considered but not given or refused? Why? @ -[None] Did you discuss the management of the patient with other professionals (professionals i.e. , PA, MALL MANAGER, lab, RT, psych nurse, director social, oil well shooter, teacher, technology officer, case packer and sealer)? Give summary @ -[No] Was smoking cessation discussed for >3mins.? @ -[No] Was critical care preformed (if so, how long)? @ -[No] Were there social determinants of health that impacted care today? How? (Homelessness, low income, unemployed, alcoholism, drug addiction, transportation, low edu. Level, literacy, decrease access to med. care, fci, rehab)? @ -[No] Was there de-escalation of care discussed even if they declined (Discuss DNR or withdrawal of care, Hospice)? DNR status @ -[No] What co-morbidities impacted this encounter? (DM, HTN, Smoking, COPD, CAD, Cancer, CVA, ARF, Chemo, Hep., AIDS, mental health diagnosis, sleep apnea, morbid obesity)? @ -[None] Was patient admitted / discharged? Hospital course, mention meds given and route, prescriptions, significant lab abnormalities, going to OR and other pertinent info. @ -[Patient is 57-year-old man presenting with hypertension. His physical exam and workup is unremarkable. The patient to follow-up with his physician for adjustment to blood pressure medication. We discussed appropriate further care and follow-up with return parameters as well. Undiagnosed new problem with uncertain prognosis? @ -[No] Drug Therapy requiring intensive monitoring for toxicity (Heparin, Nitro, Insulin, Cardizem)? @ -[No] Were any procedures done? @ -[No] Diagnosis/symptom? @ -Acute on chronic hypertension Acute, or Chronic, or Acute on Chronic? @ -[default] Uncomplicated (without systemic symptoms) or Complicated (systemic symptoms)? @ -Complicated Side effects of treatment? @ -[No] Exacerbation, Progression, or Severe Exacerbation? @ -[No] Poses a threat to life or bodily function? How? (Chest pain, [place], [place], pneumonia, PE, COPD, DKA, ARF, appy, cholecystitis, CVA, Diverticulitis, Homicidal, Suicidal, threat to staff... and all critical care pts) @ -[No] Disposition Clinical Impression: Hypertension Disposition: HOME SELF-CARE Condition: Good Instructions (If sedation given, give patient instructions): Hypertension (ED) Additional Instructions: Discussed the blood pressure with your primary doctor. Should you have another episode where the blood pressure is as high as it was tonight, he may take the prescribed medication. If there are symptoms deftly return to the emergency department immediately. Prescriptions: cloNIDine HCL 0.1 mg PO Q8H PRN #20 tab PRN Reason: Hypertension Is patient prescribed a controlled substance at d/c from ED?: No Referrals: Holger Myers MD [Primary Care Provider] - 1-2 days
[2023-03-15] MEDS ORDERED: ASPIRIN 81 MG PO STA (21:33)
[2023-03-15] MEDS ORDERED: cloNIDine HCL 0.2 MG TAB PO STA (21:37)
[2023-03-15 21:55] LABS: Basophils % (A) 1 %; Eosinophils # (A) 0.2 k/uL (0-0.7); Eosinophils % (A) 2 %; HCT 47.3 % (39.0-53.0); HGB 15.7 gm/dL (13.0-17.5); Lymphocytes # (A) 2.7 k/uL (1.0-4.8); Lymphocytes % (A) 28 %; MCH 30.8 pg (25.0-35.0); MCHC 33.2 g/dL (31.0-37.0); MCV 92.8 fL (80.0-100.0); Mean Platelet Volume 8.6; Monocytes # (A) 0.7 k/uL (0-1.0); Monocytes % (A) 7 %; Neutrophils # (A) 5.8 k/uL (1.3-7.7); Neutrophils % (A) 60 %; Platelet Count 200 k/uL (150-450); RDW 13.2 % (11.5-15.5); WBC 9.6 k/uL (3.8-10.6)
[2023-03-15 22:07] LABS: ALT 21 U/L (4-49); AST 24 U/L (17-59); African American GFR (CKD) 85 (>60 ml/min/1.73 sqM); Alkaline Phosphatase 72 U/L (38-126); Anion Gap 11 mmol/L; Blood Urea Nitrogen 19 mg/dL (9-20); Calcium 9.3 mg/dL (8.4-10.2); Carbon Dioxide 24 mmol/L (22-30); Chloride 102 mmol/L (98-107); Glucose 87 mg/dL (74-99); Magnesium 2.1 mg/dL (1.6-2.3); Non-African American GFR(CKD) 74 (>60 ml/min/1.73 sqM); Potassium 4.3 mmol/L (3.5-5.1); Sodium 137 mmol/L (137-145); Total Bilirubin 0.6 mg/dL (0.2-1.3); Total Protein 7.2 g/dL (6.3-8.2)
[2023-03-15 22:13] LABS: INR 0.9 (<1.2); Partial Thromboplastin Time 22.8 sec (22.0-30.0); Prothrombin Time 10.2 sec (10.0-12.5)
[2023-03-16 02:04] VITALS: BP 133/99; PULSE 70; RESP 16; TEMP 98.7
--- NOTE | 2023-03-16 07:41 | XR ---
EXAMINATION TYPE: XR chest 2V DATE OF EXAM: 03/15/2023 COMPARISON: 02/09/2021 HISTORY: Shortness of breath TECHNIQUE: Frontal and lateral views of the chest are obtained. FINDINGS: Scattered senescent parenchymal changes noted. Hyperinflation compatible with COPD. No evidence for infiltrate. No evidence for atelectasis. Heart size is stable. Mediastinal structures are stable and grossly unremarkable. No evidence for hilar prominence. Degenerative changes dorsal spine. IMPRESSION: 1. No evidence for acute pulmonary disease.
== END 2023-03-16 01:40 | disposition home or self-care (01) ==
LOC: EC 21:06
DX: I10 Essential (primary) hypertension (principal); Z88.5 Allergy status to narcotic agent; Z79.899 Other long term (current) drug therapy
CPT/HCPCS: 36415; 71046; 80053; 83735; 84484; 85025; 85610; 85730; 93005; 99285